=== PATIENT | male | born 1990 | race Caucasian/White ===

== ENCOUNTER 2017-12-17 12:57 | Emergency (ER) | payer BC ==
[2017-12-17 13:03] VITALS: RESP 18; TEMP 97.7
[2017-12-17] MEDS ORDERED: ONDANSETRON 4 MG/2 ML VIAL IVP STA (13:51)
[2017-12-17] MEDS ORDERED: KETOROLAC 60 MG/2 ML VIAL IVP STA (13:51)
--- NOTE | 2017-12-17 13:51 | ED ---
General Adult HPI - General Chief complaint: Abdominal Pain Stated complaint: Right Side Pain Time Seen by Provider: 12/17/17 13:00 Source: patient, RN notes reviewed Mode of arrival: ambulatory Limitations: no limitations - History of Present Illness Initial comments: This is a 27-year-old male who presents emergency Department complaining of right-sided abdominal pain into his back patient denies any pain with palpation. Patient states this made him nauseated and has been vomiting. Patient states it started at 9:00 today very abruptly. Patient denies any history of kidney stones. Patient denies any hematuria dysuria or urinary frequency. Patient denies any diarrhea. Patient denies any recent fever chills. - Related Data Home Medications Medication Instructions Recorded Confirmed Acetaminophen Tab [Tylenol Tab] 650 mg PO ONCE 12/17/17 12/17/17 Previous Rx's Medication Instructions Recorded Hydrocodone/Acetaminophen [Mode 1 each PO Q4HR PRN #20 tab 12/17/17 5-325] Ketorolac [Toradol] 10 mg PO Q6HR #15 tab 12/17/17 Tamsulosin [Flomax] 0.4 mg PO DAILY 7 Days cap 12/17/17 Allergies Allergy/AdvReac Type Severity Reaction Status Date / Time No Known Allergies Allergy Verified 12/17/17 14:07 Review of Systems ROS Statement: Those systems with pertinent positive or pertinent negative responses have been documented in the HPI. ROS Other: All systems not noted in ROS Statement are negative. Past Medical History Past Medical History: No Reported History History of Any Multi-Drug Resistant Organisms: None Reported Past Surgical History: No Surgical Hx Reported Past Psychological History: No Psychological Hx Reported Smoking Status: Never smoker Past Alcohol Use History: None Reported Past Drug Use History: None Reported General Exam - General Exam Comments Initial Comments: GENERAL: Patient is well-developed and well-nourished. Patient is nontoxic and well- hydrated and is in mild distress. ENT: Neck is soft and supple. No significant lymphadenopathy is noted. Oropharynx is clear. Moist mucous membranes. Neck has full range of motion without eliciting any pain. EYES: The sclera were anicteric and conjunctiva were pink and moist. Extraocular movements were intact and pupils were equal round and reactive to light. Eyelids were unremarkable. PULMONARY: Unlabored respirations. Good breath sounds bilaterally. No audible rales rhonchi or wheezing was noted. CARDIOVASCULAR: There is a regular rate and rhythm without any murmurs gallops or rubs. ABDOMEN: Soft and nontender with normal bowel sounds. No palpable organomegaly was noted. There is no palpable pulsatile mass. SKIN: Skin is clear with no lesions or rashes and otherwise unremarkable. NEUROLOGIC: Patient is alert and oriented x3. Cranial nerves II through XII are grossly intact. Motor and sensory are also intact. Normal speech, volume and content. Symmetrical smile. MUSCULOSKELETAL: Normal extremities with adequate strength and full range of motion. LYMPHATICS: No significant lymphadenopathy is noted PSYCHIATRIC: Normal psychiatric evaluation. Normal interpersonal interactions appears functionally intact in deals appropriately with others. No signs of depression. No signs of anxiety. Limitations: no limitations Course Vital Signs 12/17/17 13:00 Temperature 97.7 F Pulse Rate 96 Respiratory 18 Rate Blood Pressure 133/80 O2 Sat by Pulse 98 Oximetry Medical Decision Making - Medical Decision Making Toradol helped the patient's pain considerably but was still having some pains I gave the patient some morphine. Computed tomography scan showed a 3 mm stone. - Lab Data Result diagrams: 12/17/17 13:47 12/17/17 13:47 Lab Results 12/17/17 12/17/17 12/17/17 Range/Units 13:47 13:47 13:47 WBC 10.9 H (3.8-10.6) k/uL RBC 5.23 (4.30-5.90) m/uL Hgb 14.4 (13.0-17.5) gm/dL Hct 43.1 (39.0-53.0) % MCV 82.4 (80.0-100.0) fL MCH 27.5 (25.0-35.0) pg MCHC 33.4 (31.0-37.0) g/dL RDW 13.2 (11.5-15.5) % Plt Count 295 (150-450) k/uL Neutrophils % 76 % Lymphocytes % 16 % Monocytes % 4 % Eosinophils % 2 % Basophils % 0 % Neutrophils # 8.3 H (1.3-7.7) k/uL Lymphocytes # 1.7 (1.0-4.8) k/uL Monocytes # 0.4 (0-1.0) k/uL Eosinophils # 0.2 (0-0.7) k/uL Basophils # 0.1 (0-0.2) k/uL Sodium 142 (137-145) mmol/L Potassium 4.4 (3.5-5.1) mmol/L Chloride 107 (98-107) mmol/L Carbon Dioxide 22 (22-30) mmol/L Anion Gap 13 mmol/L BUN 14 (9-20) mg/dL Creatinine 1.19 (0.66-1.25) mg/dL Est GFR (CKD-EPI)AfAm >90 (>60 ml/min/1.73 sqM) Est GFR (CKD-EPI)NonAf 85 (>60 ml/min/1.73 sqM) Glucose 112 H (74-99) mg/dL Calcium 9.9 (8.4-10.2) mg/dL Total Bilirubin 0.7 (0.2-1.3) mg/dL AST 27 (17-59) U/L ALT 41 (21-72) U/L Alkaline Phosphatase 112 (38-126) U/L Total Protein 7.2 (6.3-8.2) g/dL Albumin 4.3 (3.5-5.0) g/dL Amylase 31 (30-110) U/L Lipase 53 (23-300) U/L Urine Color Yellow Urine Appearance Cloudy (Clear) Urine pH 5.5 (5.0-8.0) Ur Specific [place] 1.029 (1.001-1.035) Urine Protein 2+ H (Negative) Urine Glucose (UA) Negative (Negative) Urine Ketones Negative (Negative) Urine Blood Large H (Negative) Urine Nitrite Negative (Negative) Urine Bilirubin Negative (Negative) Urine Urobilinogen <2.0 (<2.0) mg/dL Ur Leukocyte Esterase Negative (Negative) Urine RBC 20 H (0-5) /hpf Urine WBC 2 (0-5) /hpf Urine Bacteria Rare H (None) /hpf Urine Mucus Moderate H (None) /hpf Disposition Clinical Impression: Ureterolithiasis Disposition: HOME SELF-CARE Condition: Good Instructions: Ureteral Stones (ED) Prescriptions: Hydrocodone/Acetaminophen [Mode 5-325] 1 each PO Q4HR PRN #20 tab PRN Reason: Pain Ketorolac [Toradol] 10 mg PO Q6HR #15 tab Tamsulosin [Flomax] 0.4 mg PO DAILY 7 Days cap Referrals: Scar Garcia MD [Primary Care Provider] - 1-2 days Time of Disposition: 15:07
[2017-12-17 14:00] LABS: Appearance,Urine Cloudy (Clear); Bacteria,Urine Rare /hpf; Bilirubin,Urine Negative (Negative); Blood,Urine Large (Negative); Color,Urine Yellow; Glucose,Urine (UA) Negative (Negative); Ketones,Urine Negative (Negative); Leukocyte Esterase,Urine Negative (Negative); Mucus,Urine Moderate /hpf; Nitrite,Urine Negative (Negative); PH, Urine 5.5 (5.0-8.0); Protein,Urine 2+ (Negative); RBC,Urine 20 /hpf (0-5); Specific Gravity,Urine 1.029 (1.001-1.035); Urobilinogen,Urine <2.0 mg/dL (<2.0); WBC,Urine 2 /hpf (0-5)
[2017-12-17 14:03] LABS: Basophils # (A) 0.1 k/uL (0-0.2); Basophils % (A) 0 %; Eosinophils # (A) 0.2 k/uL (0-0.7); Eosinophils % (A) 2 %; HCT 43.1 % (39.0-53.0); HGB 14.4 gm/dL (13.0-17.5); Lymphocytes # (A) 1.7 k/uL (1.0-4.8); Lymphocytes % (A) 16 %; MCH 27.5 pg (25.0-35.0); MCHC 33.4 g/dL (31.0-37.0); MCV 82.4 fL (80.0-100.0); Mean Platelet Volume 8.1; Monocytes # (A) 0.4 k/uL (0-1.0); Monocytes % (A) 4 %; Neutrophils # (A) 8.3 k/uL (1.3-7.7); Neutrophils % (A) 76 %; Platelet Count 295 k/uL (150-450); RBC 5.23 m/uL (4.30-5.90); RDW 13.2 % (11.5-15.5); WBC 10.9 k/uL (3.8-10.6)
[2017-12-17 14:08] LABS: ALT 41 U/L (21-72); AST 27 U/L (17-59); Albumin 4.3 g/dL (3.5-5.0); Alkaline Phosphatase 112 U/L (38-126); Amylase 31 U/L (30-110); Anion Gap 13 mmol/L; Blood Urea Nitrogen 14 mg/dL (9-20); Calcium 9.9 mg/dL (8.4-10.2); Carbon Dioxide 22 mmol/L (22-30); Chloride 107 mmol/L (98-107); Glucose 112 mg/dL (74-99); Lipase 53 U/L (23-300); Potassium 4.4 mmol/L (3.5-5.1); Sodium 142 mmol/L (137-145); Total Bilirubin 0.7 mg/dL (0.2-1.3); Total Protein 7.2 g/dL (6.3-8.2)
--- NOTE | 2017-12-17 14:43 | XR ---
EXAMINATION TYPE: XR KUB DATE OF EXAM: 12/17/2017 COMPARISON: NONE HISTORY: Abdominal pain TECHNIQUE: One view abdominal series FINDINGS: The osseous structures are intact. The bowel gas pattern is nonspecific. Lung bases are clear. There is a curvature of the spine. Retained fecal debris along the right colon. There is a paucity of pool l of bowel gas. IMPRESSION: 1. Nonspecific abdomen. Paucity of bowel gas can be associated with enteritis or ileus.
--- NOTE | 2017-12-17 14:46 | CT ---
EXAMINATION TYPE: CT abdomen pelvis wo con DATE OF EXAM: 12/17/2017 COMPARISON: NONE INDICATION: Right flank pain DLP: 1885 mGycm, Automated exposure control for dose reduction was used. CONTRAST: mL of . Study performed without Oral Contrast TECHNIQUE: Axial images were obtained from above the diaphragm to the pubic rami in the axial plane a t 5 mm thick sections. Reconstructed images are reviewed on the computer in the coronal plane. FINDINGS: Limited CT sections are obtained the lung bases. The lung bases are clear. CT ABDOMEN: Liver: Normal Spleen: Normal Pancreas: Normal Adrenal glands: The adrenal glands are normal. Gallbladder: Normal Kidneys: No masses are evident. Minimal right hydronephrosis may be present. Significant hydroureter is not evident. In the coronal plane however tracking into the distal right ureter above the ureterov esical junction is a tiny calcification is could be a distal ureteral stone. No cysts are present. Aorta: Vascular calcification is within the aorta. Inferior vena cava: Normal. CT PELVIS: Loops of bowel within the abdomen and pelvis are normal. There are loops of bowel which are incom pletely distended or lack oral contrast limiting their evaluation. Appendix: Normal as visualized. Urinary bladder: Normal. Genitourinary structures: Prostate is normal. Osseous structures: No suspicious lytic or sclerotic lesions. No suspicious osseous abnormality. IMPRESSIONS: 1. 0.3 cm distal right ureteral stone with minimal hydronephrosis and hydroureter. 2. Normal appendix
[2017-12-17] MEDS ORDERED: MORPHINE SULFATE 4 MG/ML SYRINGE IVP STA (15:01)
[2017-12-17 15:16] VITALS: BP 125/60; PULSE 77
== END 2017-12-17 15:19 | disposition home or self-care (01) ==
LOC: EC 12:57
DX: N20.1 Calculus of ureter (principal)
CPT/HCPCS: 36415; 80053; 82150; 83690; 85025; 81001; 74018; 74176; 99284; 96374; 96375 ×2; J2270; J2405; J1885

== ENCOUNTER 2018-07-18 03:37 | Emergency (ER) | payer BC, OTHER ==
[2018-07-18 03:42] VITALS: TEMP 98.1
[2018-07-18] MEDS ORDERED: LIDOCAINE 1% INJ 10MG/ML (20 ML MDV) SQ ONE (03:48)
[2018-07-18] MEDS ORDERED: LIDOCAINE 1%-EPI 1:100,000 30 ML VIAL SQ STA (03:52)
--- NOTE | 2018-07-18 04:06 | ED ---
Wound/Laceration HPI - General Source: patient, EMS Mode of arrival: EMS Limitations: no limitations <Keiko Mortensen - Last Filed: 07/18/18 04:59> <Iesha Shipman - Last Filed: 07/19/18 00:25> - General Chief Complaint: Wound/Laceration Stated Complaint: leg bleeding Time Seen by Provider: 07/18/18 03:39 - History of Present Illness Initial Comments: 28-year-old male patient presents to the emergency department today for evaluation of bleeding to the left lower leg. Patient states that he has had a cluster of vessels which sounds like a possible varicose vein that developed on his left lateral calf couple of months ago. Patient states tonight he got out of the shower and slipped hitting his leg on the side of a cupboard. Patient states it hit that spotting cause it to stop bleeding. Patient states the blood was squirting out and he is unable to get it to stop at home. He denies taking any anticoagulant medications. He denies any bleeding disorders or other medical conditions. States he was able to catch himself during the fall and denies any other injuries. He denies hitting his head or losing consciousness. Patient denies any headache, neck pain, back pain, chest pain, shortness of breath, dizziness, weakness, abdominal pain, nausea, vomiting, or difficulties with bowel movements or urination. (Keiko Mortensen) - Related Data Home Medications Medication Instructions Recorded Confirmed Acetaminophen Tab [Tylenol Tab] 650 mg PO ONCE 12/17/17 12/17/17 Previous Rx's Medication Instructions Recorded Hydrocodone/Acetaminophen [Success 1 each PO Q4HR PRN #20 tab 12/17/17 5-325] Ketorolac [Toradol] 10 mg PO Q6HR #15 tab 12/17/17 Tamsulosin [Flomax] 0.4 mg PO DAILY 7 Days cap 12/17/17 Allergies Allergy/AdvReac Type Severity Reaction Status Date / Time No Known Allergies Allergy Verified 12/17/17 14:07 Review of Systems ROS Other: All systems not noted in ROS Statement are negative. <Keiko Mortensen - Last Filed: 07/18/18 04:59> ROS Other: All systems not noted in ROS Statement are negative. <Iesha Shipman - Last Filed: 07/19/18 00:25> ROS Statement: Those systems with pertinent positive or pertinent negative responses have been documented in the HPI. Past Medical History Past Medical History: No Reported History History of Any Multi-Drug Resistant Organisms: None Reported Past Surgical History: No Surgical Hx Reported Past Psychological History: No Psychological Hx Reported Smoking Status: Never smoker Past Alcohol Use History: None Reported Past Drug Use History: None Reported <Keiko Mortensen - Last Filed: 07/18/18 04:59> General Exam Limitations: no limitations General appearance: alert, in no apparent distress, other (This is a well- developed, well-nourished adult male patient in no acute distress. Vital signs upon presentation are temperature 98.1F, pulse 94, respirations 15, blood pressure 138/78, pulse ox 98% on room air.) Head exam: Present: atraumatic, normocephalic, normal inspection Eye exam: Present: normal appearance, PERRL, EOMI. Absent: scleral icterus, conjunctival injection, periorbital swelling Neck exam: Present: normal inspection, full ROM, other (Nontender, no step-off, no deformity to firm midline palpation of the posterior cervical spine. Full range of motion without pain or limitation.). Absent: tenderness, meningismus, lymphadenopathy Respiratory exam: Present: normal lung sounds bilaterally. Absent: respiratory distress, wheezes, rales, rhonchi, stridor Cardiovascular Exam: Present: regular rate, normal rhythm, normal heart sounds. Absent: systolic murmur, diastolic murmur, rubs, gallop, clicks Extremities exam: Present: full ROM, normal capillary refill, other (There is superficial bleeding vessel to the left lateral calf, blood is squirting, nonpulsatile. Skin below the lesion is pink, warm, and dry. Cap refills less than 3 seconds. Pedal pulses 2+ and equal bilaterally.). Absent: normal inspection, tenderness, pedal edema, joint swelling, calf tenderness Back exam: Present: normal inspection, other (Nontender, no step-off, no deformity to firm midline palpation of the thoracic and lumbar vertebrae. Full range of motion without pain or limitation.). Absent: vertebral tenderness Neurological exam: Present: alert, oriented X3, CN II-XII intact Psychiatric exam: Present: normal affect, normal mood Skin exam: Present: warm, dry, intact, normal color. Absent: rash <Keiko Mortensen - Last Filed: 07/18/18 04:59> Vital Signs 07/18/18 07/18/18 03:39 05:10 Temperature 98.1 F Pulse Rate 94 74 Respiratory 15 19 Rate Blood Pressure 138/78 111/61 O2 Sat by Pulse 98 100 Oximetry Procedures - Laceration Laceration #1 Consent Obtained: verbal consent Time Out Performed: Yes Indication: other (Bleeding varicose vein) Site: lower extremity (Left lateral calf) Anesthetic Used: lidocaine 1%, with epi Anesthesia Technique: local infiltration Amount (mls): 5 Type of Sutures: nylon Size of Sutures: 4-0 Number of Sutures: 2 Technique: simple, interrupted Patient Tolerated Procedure: well, no complications <Keiko Mortensen - Last Filed: 07/18/18 04:59> <Iesha Shipman - Last Filed: 07/19/18 00:25> - Laceration Laceration #1 Additional Comments: Size 1 mm (Keiko Mortensen) Medical Decision Making <Keiko Mortensen - Last Filed: 07/18/18 04:59> <Iesha Shipman - Last Filed: 07/19/18 00:25> - Medical Decision Making 28 year-old male patient presented to the emergency department today for evaluation of bleeding from his leg. Patient had puncture type lesion to the varicose vein on the left lateral calf, blood spurting. Infiltrated the wound with 1% lidocaine with epinephrine, bleeding did slow but did not stop. Did insert 2 sutures, no evidence of further bleeding. Patient tolerated procedure well. Vital signs stable. Patient instructed to follow-up with primary care physician, he does not have one, did refer him to one. He is instructed to return in 7 days to have sutures removed. Educated regarding wound care and signs or symptoms of infection. Return parameters discussed in detail. He verbalizes understanding and agrees with this plan. (Keiko Mortensen) I personally saw and examined the patient. I reviewed and agree with the mid- level provider findings including all diagnostic interpretations and treatment plans as written unless otherwise stated. I was present for iverson portions of any procedures performed. (Iesha Shipman) Disposition Is patient prescribed a controlled substance at d/c from ED?: No Time of Disposition: :58 <Keiko Mortensen M - Last Filed: 07/18/18 04:59> <Iesha Shipman P - Last Filed: 07/19/18 00:25> Clinical Impression: Bleeding from varicose veins of left lower extremity Disposition: HOME SELF-CARE Condition: Good Instructions: Care For Your Stitches (ED), Acute Wound Care (ED) Additional Instructions: Keep wound clean and dry. Return in 7 days for removal of stitches. Monitor for signs or symptoms of infection including but not limited to redness, swelling, drainage of pus, fever, or chills per Follow-up with a primary care physician for recheck in 1-2 days. Return here immediately for any new, worsening, or concerning symptoms. Referrals: Esequiel Alejandro DO [STAFF PHYSICIAN] - 1-2 days
[2018-07-18 05:12] VITALS: BP 111/61; PULSE 74; RESP 19
== END 2018-07-18 05:10 | disposition home or self-care (01) ==
LOC: EC 03:37 → SUPCPDRO 03:37 → EC 05:10
DX: I83.892 Varicose veins of left lower extremity with other complications (principal); S81.812A Laceration without foreign body, left lower leg, initial encounter; X50.9XXA Other and unspecified overexertion or strenuous movements or postures, initial encounter
CPT/HCPCS: 12001; 99283

== ENCOUNTER 2018-08-14 19:33 | Emergency (ER) | payer BC, OTHER ==
[2018-08-14 19:51] VITALS: TEMP 98.1
[2018-08-14] MEDS ORDERED: GELATIN SPONGE,ABSORB (LARGE) 1 EACH SPONGE TOPICAL STA (20:23)
--- NOTE | 2018-08-14 20:25 | ED ---
Wound/Laceration HPI - General Chief Complaint: Wound/Laceration Stated Complaint: leg pain Time Seen by Provider: 08/14/18 20:00 Source: patient, RN notes reviewed, old records reviewed Mode of arrival: ambulatory Limitations: no limitations - History of Present Illness Initial Comments: Patient is a 28 year old male with CC of bleeding from varicose vein from left galvan. Patient reports that one month ago he hit his leg, which caused severe bleeding. Patient at that time required stitchest toligate the bleeding vessel. He reports that today, he hit the same area an accident and is concerned that he will need hte same. He reported significant bleeding over his clothes and bathroom. Denies anticoagulation. He has multiple varicose veins due to weight and standing all the time due to his job. - Related Data Home Medications Medication Instructions Recorded Confirmed Acetaminophen Tab [Tylenol Tab] 650 mg PO ONCE 12/17/17 12/17/17 Previous Rx's Medication Instructions Recorded Hydrocodone/Acetaminophen [[place] 1 each PO Q4HR PRN #20 tab 12/17/17 5-325] Ketorolac [Toradol] 10 mg PO Q6HR #15 tab 12/17/17 Tamsulosin [Flomax] 0.4 mg PO DAILY 7 Days cap 12/17/17 Allergies Allergy/AdvReac Type Severity Reaction Status Date / Time No Known Allergies Allergy Verified 08/14/18 19:50 Review of Systems ROS Statement: Those systems with pertinent positive or pertinent negative responses have been documented in the HPI. ROS Other: All systems not noted in ROS Statement are negative. Past Medical History Past Medical History: No Reported History History of Any Multi-Drug Resistant Organisms: None Reported Past Surgical History: No Surgical Hx Reported Past Psychological History: No Psychological Hx Reported Smoking Status: Never smoker Past Alcohol Use History: None Reported Past Drug Use History: None Reported General Exam - General Exam Comments Initial Comments: Well appearing pleasant 28 year old male, no distress. Limitations: no limitations General appearance: alert, in no apparent distress Head exam: Present: atraumatic, normocephalic, normal inspection Eye exam: Present: normal appearance, PERRL, EOMI. Absent: scleral icterus, conjunctival injection, periorbital swelling ENT exam: Present: normal exam, mucous membranes moist Neck exam: Present: normal inspection. Absent: tenderness, meningismus, lymphadenopathy Respiratory exam: Present: normal lung sounds bilaterally. Absent: respiratory distress, wheezes, rales, rhonchi, stridor Cardiovascular Exam: Present: regular rate, normal rhythm, normal heart sounds. Absent: systolic murmur, diastolic murmur, rubs, gallop, clicks Extremities exam: Present: normal inspection, full ROM, normal capillary refill , other (varicosity to left galvan, when dressing is removed scab has formed and no further bleeding noted. ). Absent: tenderness, pedal edema, joint swelling, calf tenderness Back exam: Present: normal inspection Neurological exam: Present: alert, oriented X3, CN II-XII intact Psychiatric exam: Present: normal affect, normal mood Course Vital Signs 08/14/18 08/14/18 19:48 21:25 Temperature 98.1 F Pulse Rate 102 H 109 H Respiratory 20 16 Rate Blood Pressure 188/104 140/91 O2 Sat by Pulse 99 96 Oximetry Medical Decision Making - Medical Decision Making Patient is a 28 year old male with CC of bleeding varicose vein on left leg, after he hit the area on accident. Patient at this time had dressing removed and found that the bleeding has subsided. Patient was initially concerned that it will Rebleed. Discussed if I place sutures in the area and retraumatize this it could rebleed and prolong the issue. Patient then agrees to using gelfoam and gauze wrap over the area. Discussed that patient need to use compression stockings and to follow up with vascular specialty. Return parameters discussed. Disposition Clinical Impression: Bleeding from varicose veins of left lower extremity Disposition: HOME SELF-CARE Condition: Good Instructions: Vein Stripping (DC) Additional Instructions: Patient advised to wear compression stockings while at work. Patient should keep the wound covered with dressing to ensure that no further skin abrasions get occur. Patient should follow-up with vascular surgery. Keep the legs up and elevated. If the wound does continue to rebleed apply firm pressure for 20 minutes keep the leg elevated. Is patient prescribed a controlled substance at d/c from ED?: No Referrals: Scar Garcia MD [Primary Care Provider] - 1-2 days Refugio Stubbs MD [STAFF PHYSICIAN] - 1-2 days Time of Disposition: 20:24
[2018-08-14 21:28] VITALS: BP 140/91; PULSE 109; RESP 16
--- NOTE | 2018-08-15 04:06 | CDI ---
Documentation Clarification OP Dear MILANA Kilpatrick: Please do addendum to ED report for HPI , Physical exam and MDM. Thank you, Ludmila Narvaez Tool Designer Apprentice If you have any question, Please contact jewelry manager at [phone] [facility]
== END 2018-08-14 21:25 | disposition home or self-care (01) ==
LOC: EC 19:33
DX: I83.892 Varicose veins of left lower extremity with other complications (principal); R58 Hemorrhage, not elsewhere classified; Z79.899 Other long term (current) drug therapy
CPT/HCPCS: 99283

== ENCOUNTER 2018-10-10 20:25 | Emergency (ER) | payer BC, MEDICAID ==
[2018-10-10] MEDS ORDERED: SODIUM CHLORIDE 0.9% 1,000 ML IV STA (20:55)
[2018-10-10] MEDS ORDERED: IPRATROPIUM-ALBUTEROL 3 ML NEB INHALATION STA (20:55)
--- NOTE | 2018-10-10 20:57 | ED ---
SOB HPI - General Chief Complaint: Shortness of Breath Stated Complaint: MICHAEL Time Seen by Provider: 10/10/18 20:38 Source: patient, family Mode of arrival: ambulatory Limitations: no limitations - History of Present Illness Initial Comments: Patient is a 28-year-old male presenting for shortness of breath and cough. The patient states that it started yesterday. He states that he has no history of asthma currently but did have some as a child. He does not smoke and admits to subjective fevers or chills. He admits to shortness of breath and no chest pain. He has had some nausea but no vomiting or diarrhea. - Related Data Previous Rx's Medication Instructions Recorded Albuterol Inhaler [Ventolin Hfa 1 - 2 puff INHALATION Q6HR PRN #1 10/10/18 Inhaler] inhaler Azithromycin [Zithromax] 0 mg PO DIRECTED #6 tab 10/10/18 predniSONE 50 mg PO DAILY #4 tablet 10/10/18 Allergies Allergy/AdvReac Type Severity Reaction Status Date / Time No Known Allergies Allergy Verified 10/10/18 20:41 Review of Systems ROS Statement: Those systems with pertinent positive or pertinent negative responses have been documented in the HPI. Constitutional: Positive for chills, fatigue and fever. HENT: Positive for congestion. Respiratory: Negative for chest tightness, positive for shortness of breath and wheezing. Positive for cough Cardiovascular: Negative for chest pain and palpitations. Gastrointestinal: Negative for abdominal pain. Negative for abdominal distention , diarrhea, nausea and vomiting. Genitourinary: Negative for dysuria. Musculoskeletal: Negative for back pain, neck pain and neck stiffness. Skin: Negative for color change. Neurological: Negative for dizziness, speech difficulty, weakness and light- headedness. Psychiatric/Behavioral: Negative for agitation and confusion. Negative for anxiety ROS Other: All systems not noted in ROS Statement are negative. Past Medical History Past Medical History: No Reported History History of Any Multi-Drug Resistant Organisms: None Reported Past Surgical History: No Surgical Hx Reported Past Psychological History: Anxiety, Depression Smoking Status: Never smoker Past Alcohol Use History: Occasional Past Drug Use History: None Reported General Exam - General Exam Comments Initial Comments: Constitutional: Pt is oriented to person, place, and time. Pt appears well- developed and well-nourished. No distress. HENT: Head: Normocephalic and atraumatic. Eyes: EOM are normal. Neck: Normal range of motion. Neck supple. Cardiovascular: Tachycardic, regular rhythm, S1 normal, S2 normal and normal heart sounds. Exam reveals no gallop and no friction rub. No murmur heard. Pulmonary/Chest: Effort normal and breath sounds normal. No tachypnea and no bradypnea. No respiratory distress. No rales noted. Diffuse wheezes noted in all lung uriostegui Abdominal: Soft. Bowel sounds are normal. Pt exhibits no shifting dullness, no distension, no pulsatile liver, no fluid wave, no abdominal bruit and no ascites. There is no tenderness. There is no rigidity, no rebound, no guarding, no tenderness at McBurney's point and negative Gomez's sign. Musculoskeletal: Normal range of motion. Neurological: Pt is alert and oriented to person, place, and time. No cranial nerve deficit. Skin: Skin is warm and dry. No rash noted. Pt is not diaphoretic. No erythema. No pallor. Psychiatric: Pt has a normal mood and affect. Pt behavior is normal. Thought content normal. Limitations: no limitations Course Vital Signs 10/10/18 10/10/18 10/10/18 20:25 21:00 21:09 Temperature 98.8 F Pulse Rate 110 H 102 H 111 H Respiratory 20 20 18 Rate Blood Pressure 155/79 148/86 O2 Sat by Pulse 94 L 97 Oximetry 10/10/18 10/10/18 10/10/18 21:30 22:00 22:30 Temperature Pulse Rate 105 H 106 H 101 H Respiratory 22 22 18 Rate Blood Pressure 147/88 139/82 139/71 O2 Sat by Pulse 96 97 97 Oximetry 10/10/18 23:00 Temperature 98.2 F Pulse Rate 103 H Respiratory 24 Rate Blood Pressure 120/84 O2 Sat by Pulse 96 Oximetry Medical Decision Making - Medical Decision Making Laboratory studies showed that there was mild leukocytosis of 14.2 and slight electrolyte derangements with a potassium 5.4. However, there were no significant EKG changes and from a respiratory standpoint, influenza was also noted to be negative and chest x-ray was negative for infiltrate. The patient was given breathing treatments and stated that his symptoms significantly improved. Although he remained slightly tachycardic, it is soft at this is secondary to the albuterol and he was able to ambulate in the emergency department without any distress or hypoxia. Because of this, the patient was thought to be safe for discharge. He was given a prescription for prednisone, azithromycin as well as albuterol and advised follow-up with PCP in next 1-2 days. Patient was agreeable to plan. - Lab Data Result diagrams: 10/10/18 21:22 10/10/18 21:22 Lab Results 10/10/18 10/10/18 10/10/18 Range/Units 21:22 21:22 21:22 WBC 14.2 H (3.8-10.6) k/uL RBC 5.49 (4.30-5.90) m/uL Hgb 15.0 (13.0-17.5) gm/dL Hct 46.0 (39.0-53.0) % MCV 83.8 (80.0-100.0) fL MCH 27.4 (25.0-35.0) pg MCHC 32.7 (31.0-37.0) g/dL RDW 13.5 (11.5-15.5) % Plt Count 280 (150-450) k/uL Neutrophils % 90 % Lymphocytes % 7 % Monocytes % 2 % Eosinophils % 2 % Basophils % 0 % Neutrophils # 12.7 H (1.3-7.7) k/uL Lymphocytes # 1.0 (1.0-4.8) k/uL Monocytes # 0.2 (0-1.0) k/uL Eosinophils # 0.3 (0-0.7) k/uL Basophils # 0.0 (0-0.2) k/uL Sodium 139 (137-145) mmol/L Potassium 5.4 H (3.5-5.1) mmol/L Chloride 107 (98-107) mmol/L Carbon Dioxide 21 L (22-30) mmol/L Anion Gap 11 mmol/L BUN 13 (9-20) mg/dL Creatinine 0.92 (0.66-1.25) mg/dL Est GFR (CKD-EPI)AfAm >90 (>60 ml/min/1.73 sqM) Est GFR (CKD-EPI)NonAf >90 (>60 ml/min/1.73 sqM) Glucose 187 H (74-99) mg/dL Calcium 9.6 (8.4-10.2) mg/dL Magnesium 2.1 (1.6-2.3) mg/dL Total Bilirubin 1.2 (0.2-1.3) mg/dL AST 42 (17-59) U/L ALT 29 (21-72) U/L Alkaline Phosphatase 94 (38-126) U/L Total Protein 8.7 H (6.3-8.2) g/dL Albumin 4.7 (3.5-5.0) g/dL Influenza Type A RNA Not Detected (Not Detectd) Influenza Type B (PCR) Not Detected (Not Detectd) - EKG Data EKG Comments: EKG shows sinus tachycardia with a rate of 105, CA interval 154, QRS 88, QTC 465. There is no significant ST depressions or elevations. Disposition Clinical Impression: Bronchitis Disposition: HOME SELF-CARE Condition: Good Instructions: Acute Bronchitis (ED) Prescriptions: Albuterol Inhaler [Ventolin Hfa Inhaler] 1 - 2 puff INHALATION Q6HR PRN #1 inhaler PRN Reason: Shortness Of Breath Or Wheezing Azithromycin [Zithromax] 0 mg PO DIRECTED #6 tab predniSONE 50 mg PO DAILY #4 tablet Is patient prescribed a controlled substance at d/c from ED?: No Referrals: Scar Garcia MD [Primary Care Provider] - 1-2 days Time of Disposition: 23:00
[2018-10-10 21:37] LABS: Basophils % (A) 0 %; Eosinophils # (A) 0.3 k/uL (0-0.7); Eosinophils % (A) 2 %; Lymphocytes % (A) 7 %; MCH 27.4 pg (25.0-35.0); MCHC 32.7 g/dL (31.0-37.0); MCV 83.8 fL (80.0-100.0); Mean Platelet Volume 8.8; Monocytes # (A) 0.2 k/uL (0-1.0); Monocytes % (A) 2 %; Neutrophils # (A) 12.7 k/uL (1.3-7.7); Neutrophils % (A) 90 %; Platelet Count 280 k/uL (150-450); RBC 5.49 m/uL (4.30-5.90); RDW 13.5 % (11.5-15.5); WBC 14.2 k/uL (3.8-10.6)
[2018-10-10 21:44] LABS: Albumin 4.7 g/dL (3.5-5.0); Anion Gap 11 mmol/L; Blood Urea Nitrogen 13 mg/dL (9-20); Calcium 9.6 mg/dL (8.4-10.2); Carbon Dioxide 21 mmol/L (22-30); Chloride 107 mmol/L (98-107); Glucose 187 mg/dL (74-99); Sodium 139 mmol/L (137-145); Total Bilirubin 1.2 mg/dL (0.2-1.3); Total Protein 8.7 g/dL (6.3-8.2)
[2018-10-10 21:45] LABS: ALT 29 U/L (21-72); AST 42 U/L (17-59); Magnesium 2.1 mg/dL (1.6-2.3); Potassium 5.4 mmol/L (3.5-5.1)
[2018-10-10 21:46] LABS: Alkaline Phosphatase 94 U/L (38-126)
--- NOTE | 2018-10-10 22:14 | XR ---
EXAMINATION TYPE: XR chest 2V DATE OF EXAM: 10/10/2018 COMPARISON: 10/08/2017 HISTORY: Short of breath TECHNIQUE: Frontal and lateral views of the chest are obtained. FINDINGS: Heart and mediastinum are normal. Lungs are clear of consolidation. There is no pleural ef fusion. There are chest leads. Costophrenic angles are clear. There is slight coarsening of the lung markings. IMPRESSION: Very slight coarsening of the lower lobe lung markings similar to old exam. No adverse c hange compared to old exam.
[2018-10-10 23:15] VITALS: BP 120/84; PULSE 103; RESP 24; TEMP 98.2
== END 2018-10-10 23:22 | disposition home or self-care (01) ==
LOC: EC 20:25
DX: J40 Bronchitis, not specified as acute or chronic (principal); D72.829 Elevated white blood cell count, unspecified; R00.0 Tachycardia, unspecified
CPT/HCPCS: 36415; 71046; 80053; 83735; 85025; 87502; 93005; 94640; 96360; 96361; 99285

== ENCOUNTER → 2019-11-05 | Outpatient (CLI) | payer MEDICAID ==
[2019-11-05 09:56] VITALS: BMI 54.1
== END | disposition home or self-care (01) ==
LOC: DBWHC3 08:47
PROVIDERS: ATTEND Family Medicine
DX: E66.9 Obesity, unspecified (principal); Z68.43 Body mass index [BMI] 50.0-59.9, adult
CPT/HCPCS: 97802